=== PATIENT | female | born 1970 | race Caucasian/White ===

== ENCOUNTER 2016-04-18 11:30 | Emergency (ER) | payer SELFPAY ==
[~2016-04-18] VITALS: Ht 172.7 cm; Wt 104.3 kg
[2016-04-18] MEDS ORDERED: SODIUM CHLORIDE 0.9% 1,000 ML IV ONE (12:35)
[2016-04-18] MEDS ORDERED: THIAMINE INJ 100 MG, MULTIPLE VITAMIN 10 ML, FOLIC ACID 1 MG, MAGNESIUM SULF SDV 50% 8 ... IV ONE ×5 (12:45)
[2016-04-18 13:15] LABS: Basophils # (auto) 0 uL; Basophils % (auto) 0.3 % (0.0-2.0); Eosinophils # (auto) 0.3 uL; Eosinophils % (auto) 6.9 % (0.0-7.0); Hematocrit 45.6 % (36.0-46.0); Hemoglobin 15.1 g/dL (12.2-16.2); Lymphocytes # (auto) 1.2 uL; Lymphocytes % (auto) 23.7 % (10.0-50.0); Mean Corpuscular Hemoglobin 32.1 pg (28.0-32.0); Mean Corpuscular Hgb Conc. 33.1 g/dL (32.0-36.0); Mean Corpuscular Volume 96.8 fL (80.0-100.0); Mean Platelet Volume 7.2 fL (7.4-10.4); Monocytes # (auto) 0.4 uL; Neutrophils # (auto) 3.1 uL; Neutrophils % (auto) 61.1 % (37.0-80.0); Platelet Count (auto) 237 10^3/uL (140-450); White Blood Cell 5.1 10^3/uL (4.4-10.8)
[2016-04-18 13:39] LABS: Albumin 3.9 g/dL (3.4-5.0); BUN/Creatinine Ratio 14.3; Bilirubin, Total 0.2 mg/dL (0.2-1.0); Calcium 8.4 mg/dL (8.5-10.1); Magnesium 2.4 mg/dL (1.6-2.6); Potassium 4.2 mmol/L (3.5-5.1)
[2016-04-18 15:00] LABS: Urine RBC None Seen /hpf (0 - 4)
[2016-04-18 15:07] LABS: Urine Bilirubin Negative (Negative); Urine Blood Negative /uL (Negative); Urine Color Colorless (Yellow); Urine Glucose Normal (Normal); Urine Ketone Negative (Negative); Urine Nitrite Negative (Negative); Urine Urobilinogen Normal (Negative); Urine pH 6.5 (5.0-8.0)
[2016-04-18] MEDS ORDERED: LORazepam 2MG/ML-1ML VIAL IV ONE (17:45)
[2016-04-19 01:00] VITALS: BP 105/69
== END 2016-04-19 02:05 | disposition home or self-care (01) ==
LOC: ER 11:37
DX: R41.82 Altered mental status, unspecified (principal); G92 Toxic encephalopathy; F10.129 Alcohol abuse with intoxication, unspecified; R09.89 Other specified symptoms and signs involving the circulatory and respiratory systems; E66.9 Obesity, unspecified; Z68.35 Body mass index [BMI] 35.0-35.9, adult; F32.9 Major depressive disorder, single episode, unspecified
CPT/HCPCS: 36415; 70450; 71010; 80053; 80320; 81001; 81002; 83735; 84484; 84702; 85025; 96365; 96366; 96375; 99285; G0434; J2060; J3411; J3475; J7030; 96361

== ENCOUNTER 2016-11-24 16:57 | Emergency (ER) | payer SELFPAY ==
[~2016-11-24] VITALS: Ht 175.3 cm; Wt 104.3 kg
[2016-11-24 19:35] VITALS: BP 114/82
[2016-11-24] MEDS ORDERED: THIAMINE HCL 100 MG/ML 2ML VIAL IM ONE (20:15)
== END 2016-11-24 21:06 | disposition home or self-care (01) ==
LOC: ER 16:57 → EDBD 16:57 → ER 21:06
DX: F10.10 Alcohol abuse, uncomplicated (principal); F41.9 Anxiety disorder, unspecified; Y90.8 Blood alcohol level of 240 mg/100 ml or more
CPT/HCPCS: 36415; 70450; 80320; 96372; 99285; J3411

== ENCOUNTER 2018-05-02 00:51 | Emergency (ER) | payer MEDICAID ==
[~2018-05-02] VITALS: Ht 172.7 cm; Wt 106.6 kg
[2018-05-02 01:48] VITALS: BP 136/76
== END 2018-05-02 05:17 | disposition home or self-care (01) ==
LOC: ER 01:00
DX: T16.1XXA Foreign body in right ear, initial encounter (principal); H60.91 Unspecified otitis externa, right ear; X58.XXXA Exposure to other specified factors, initial encounter; Y93.89 Activity, other specified; Y99.8 Other external cause status; Y92.89 Other specified places as the place of occurrence of the external cause